=== PATIENT | male | born 1975 | race Caucasian/White ===

== ENCOUNTER 2020-09-20 11:04 | Outpatient (REF) | payer MEDICAID, SELFPAY | END 2020-09-20 11:05 | disposition home or self-care (01) | LOC: HO.LAB 11:04 | PROVIDERS: Visit Provider Internal Medicine | DX: Z20.828 Contact with and (suspected) exposure to other viral communicable diseases (principal) | CPT/HCPCS: C9803; U0003 ==

== ENCOUNTER 2020-10-13 14:01 | Emergency (ER) | payer MEDICAID, SELFPAY ==
[2020-10-13 14:21] VITALS: BP 173/92; PULSE 85; RESP 16; TEMP 36.9; O2SAT 97; BMI 35.2
--- NOTE | 2020-10-13 14:36 | ED_ITS ---
HPI - General Adult General Chief complaint: Psychiatric Symptoms Stated complaint: CRISIS,DRUG USE,FEVER,COUGH Time Seen by Provider: 10/13/20 14:36 Source: patient and EMS Mode of arrival: EMS Limitations: no limitations History of Present Illness HPI narrative: 45-year-old male who presents emergency department by EMS for evaluation change in mental status. The patient states that he has a history of polysubstance abuse and had been sober for months. He states that last night he sniffs cocaine, fentanyl and Percocet. He does not know how much he took. States the has no memory of what happened last night. Apparently, the patient was agitated and altered. His apartment was disheveled and he may have broken the elevator in his apartment. On clear but someone called an ambulance and the patient was transported to emergency department for evaluation. On arrival to the emergency department the patient was very agitated insisted on leaving. He did tell me that he is feeling that he is at his baseline. Has no memory of what happened last night after he took the above drugs. He denied headache, nausea, vomiting, chest pain, shortness of breath. He states that he has an occasional cough but he attributes this to smoking cigarettes. He denied abdominal pain, myalgias, arthralgias, numbness, weakness, loss of sense of taste or smell. Patient states the does have a counselor and is not interested in getting any drug or alcohol counseling this time. He denied that he is suicidal or homicidal. Related Data Allergies Allergy/AdvReac Type Severity Reaction Status Date / Time No Known Allergies Allergy Unverified 06/23/20 15:14 [No Known Allergies*] Review of Systems Review of Systems: Yes all other systems are reviewed and are negative Neurologic: Reports Abnormal speech present [facility] Past Medical History FOR[facility], [facility] Narrative: Patient has history of hypertension high cholesterol and pancreatitis, he smokes 2 packs of cigarettes per day times 30 years, he states that he drinks weekly but has had nothing measuring can over 4 months, states that he does use cocaine, fentanyl and Percocet and had 4 months of sobriety until last night. Medical History (Updated 10/13/20 @ 14:45 by Félix Verdin MD) High cholesterol HTN (hypertension) Pancreatitis Social History Social History Advance Directives: No Advance Directives Information Provided: No Physical Exam Vital Signs: Vital Signs: Last Vital Signs Temp 98.5 F 10/13/20 14:21 Pulse 85 10/13/20 14:21 Resp 16 10/13/20 14:21 BP 173/92 H 10/13/20 14:21 Pulse Ox 97 10/13/20 14:21 Body Mass Index 35.2 Const: General: other (Initially very uncooperative, yelling at staff but did calm during intervie) Orientation/consciousness: oriented to person and oriented to place Limitations: no limitations HENMT: Head: Yes normal to inspection, Yes normocephalic and Yes atraumatic Ears: external ears normal General nose exam: Normal external nose present Face and sinus: Yes normal facial exam Mouth: Normal oral and palatal mucosa present Throat: Yes posterior oropharynx normal Eyes: Periorbital: periorbital findings normal Eyelids: Yes eyelids normal Conjunctivae: conjunctivae normal Sclerae: sclerae normal Corneas: corneas normal Pupils: Equal, round and reactive pupils present Direct Ophthalmoscopy: normal light reflex Neck: Neck: Yes full ROM, Yes no lymphadenopathy, Yes no meningeal signs, Yes trachea midline and Yes supple Chest: Chest palpation & inspection: normal inspection of the chest and normal palpation of entire chest wall Resp: Effort & Inspection: normal respiratory effort and able to speak in complete sentences Auscultation: clear to auscultation bilaterally Cardio: Rate: regular rate Rhythm: regular rhythm Heart sounds: S1 nor mal heart sound present, S2 normal heart sound present and no murmurs GI: Inspection: Yes normal to inspection Palpation (GI): Soft to palpation, nontender, no guarding, not rigid and No hepatosplenomegaly present : General: Yes no CVA tenderness Back/Spine/Pelvis: Back: no CVA tenderness Cervical Spine: normal cervical lordosis Thoracic/Lumbar Spine: thoracic and lumbar spine normal to inspection Skin: Lesions: no lesions Rashes: no rashes Wounds: no wounds Neuro: General: oriented to person, oriented to place and no meningeal signs Cranial nerves: Yes Equal, round and reactive pupils present Cognition (Neuro): normal cognition Speech: Abnormal speech present Motor exam (neuro): 5/5 motor strength present throughout Extrem: General: Yes normal to inspection and Yes full ROM Psych: Mental Status: mental status grossly normal Speech and movement: Normal speech and movement present Affect: Other affect and mood findings present (Agitated but calmed down) Thought process: Normal thought process present Thought content: Normal thought content present Insight: Good insight present (Psych) Course Course Course Narrative: 45-year-old male with a history of polysubstance abuse who presents the emergency department for altered level of consciousness after using drugs last night including fentanyl, cocaine and Percocet which he used intranasally. Patient was agitated and upset that he was transported to the emergency department but I did calm him down. The patient's physical examination was unremarkable. The patient does not want any crisis counseling or drug and alcohol counseling. He denied being ill in any way including acute change in his cough or fever. The patient does not want testing I believe at this time it is okay to discharge him to home. I believe that the patient had an adverse reaction to the drugs that he took last night and this probably caused him to destroy his apartment and cause of the agitated today. Discharge Plan Discharge Clinical Impression: Agitation, Polysubstance abuse Patient Disposition: Home, Self-Care Additional Instructions: I believe that your loss of memory above events last night were triggered by the drugs that you use last night. I believe the had an adverse reaction to the drugs that you used last night. You should discuss getting treatment for your addiction with your counselor. If you feel like you are going to hurt yourself or anyone else please return to the emergency department and we can help you with these feelings. Follow-up with your doctor in 2 days.
[2020-10-13] MEDS: LORazepam 1 MG TABLET PO (14:52)
--- NOTE | 2020-10-13 14:54 | PC.NURSE ---
Pt aggressive shortly after arriving to ED, Dr Verdin to bedside to assess. Denies SI/HI to Dr Verdin. States cough is chronic in nature, plan for Ativan and d/c
== END 2020-10-13 14:56 | disposition home or self-care (01) ==
PROVIDERS: Emergency Provider Emergency Medicine Emergency Medical Services
DX: F19.10 Other psychoactive substance abuse, uncomplicated (principal); R45.1 Restlessness and agitation; I10 Essential (primary) hypertension; F17.210 Nicotine dependence, cigarettes, uncomplicated
CPT/HCPCS: 99283

== ENCOUNTER 2024-02-25 13:51 | Outpatient (AMB) | payer MEDICAID, SELFPAY ==
--- NOTE | 2024-02-25 13:54 | MHC.OFFVIS ---
Vital Signs 02/25/24 14:07 Height 5 ft 6 in Weight 201 lb BMI 32.4 BP 180/83 H Blood Pressure Location Lt brachial Position Sitting Pulse 70 Intake Visit Reasons: Lipoma of scalp Intake Note: Patient is seen in office for evaluation and treatment of a lipoma of the scalp. Pt c/o: onset for yrs, increase in size, not painful, no discharge, redness or swelling, is ready to have it removed [employer] Required: No Accompanied by: Self / Same As Patient Allergies No Known Allergies [No Known Allergies*] Allergy (Unverified 02/25/24 14:00) Medication List - Last Reconciled 02/25/24 by Tiago Chu MD bupropion HCl XL 150 mg PO DAILY clonidine HCl 0.1 mg PO TID PRN fluoxetine 80 mg PO QAM hydrochlorothiazide 25 mg PO DAILY losartan 50 mg PO DAILY omeprazole 20 mg PO DAILY HPI Comments Details: 48-year-old male patient presenting for evaluation of a lump on the scalp. This has been present for approximately 5 years and has not changed significantly since then. He denies any bleeding, pain, discharge, or bleeding from this site. He has no previous history of trauma. He presents today to discuss excision of this lesion. [facility] Medical History HTN (hypertension) High cholesterol Pancreatitis Surgical History Hx of tonsillectomy Hx of umbilical hernia repair Social History Alcohol intake: current Patient Tobacco Use Status: Current everyday Tobacco user Review of Systems Const All systems reviewed & are unremarkable except as noted in HPI and below Physical Exam Vital Signs: Last Vital Signs Pulse 70 02/25/24 14:07 BP 180/83 H 02/25/24 14:07 BMI result Body Mass Index 32.4 Const General: cooperative and no acute distress Nutritional Appearance: well nourished Orientation/consciousness: patient oriented x3 Limitations: no limitations HEENT Head: Yes normocephalic and Yes atraumatic Head images: 1. 3 cm Pilar cyst in the midline scalp as noted. No skin ulceration, tenderness, or discharge noted. Ears: hearing grossly normal bilaterally Resp Effort & Inspection: normal respiratory effort, no audible wheezes, no cough and no respiratory distress Cardio Jugular venous distension: no JVD GI Inspection: Yes normal to inspection Skin Other: Warm, dry, no rash Neuro General: patient oriented x3 Extrem General: Yes no clubbing, cyanosis or edema Assessment & Plan Assessment & Plan (1) Pilar cyst of scalp: Code(s): L72.11 - Pilar cyst Category: Medical Plan 48-year-old male patient presenting with a large Pilar cyst of the scalp measuring approximately 3 cm in diameter. Patient requests excision of this Pilar cyst and after discussion of the procedure, risks, and alternatives, consents to the surgery. This will be performed as a minor surgery under local anesthesia at his earliest convenience. Coding Level of Care Code New Pt Level 4 (59216) Diagnoses Pilar cyst of scalp L72.11
[2024-02-25 14:07] VITALS: BP 180/83; PULSE 70; BMI 32.4
== END 2024-02-25 14:20 | disposition home or self-care (01) ==
PROVIDERS: PCP Registered Nurse; Referring Provider Internal Medicine; Visit Provider Surgery
DX: L72.11 Pilar cyst (principal)
CPT/HCPCS: 99204

== ENCOUNTER → 2024-02-25 13:51 | Outpatient (BNVA) | payer MEDICAID, SELFPAY | PROVIDERS: PCP Registered Nurse; Referring Provider Internal Medicine; Visit Provider Surgery | DX: L72.11 Pilar cyst (principal) | CPT/HCPCS: 99202 ==

== ENCOUNTER 2024-03-17 13:50 | Outpatient (REF) | payer MEDICAID, SELFPAY ==
[2024-03-17 13:54] VITALS: BP 225/110; PULSE 70; RESP 18; TEMP 36.1; O2SAT 97
[2024-03-17 14:35] VITALS: BMI 32.6
== END 2024-03-17 13:51 | disposition home or self-care (01) ==
LOC: HO.MS 13:50
PROVIDERS: Visit Provider Surgery
DX: Z53.9 Procedure and treatment not carried out, unspecified reason (principal)